=== PATIENT | female | born 1995 | race Caucasian/White ===

== ENCOUNTER → 2018-03-08 | Emergency (ER) | payer BC ==
[~2018-03-08] MED LIST: OSELTAMIVIR PHOSPHATE 75 MG CAPSULE ONE; OSELTAMIVIR PHOSPHATE 75 MG CAPSULE PO ONE; SODIUM CHLORIDE 1,000 ML IV STA
[2018-03-08 22:54] VITALS: BMI 65.4
--- NOTE | 2018-03-08 23:02 | PDOC ---
History of Present Illness - General History Source: Patient Exam Limitations: No Limitations - History of Present Illness Initial Comments: 03/08/18 23:24 The patient is a 22 year old female, with a significant past medical history of pseudotumor cerebri, who presents to the emergency department with, 3 days of cough, shortness of breath, and diarrhea. She notes associated diffuse body aches and describes her diarrhea yesterday and bloody. The patient reports she has not been able to get out of bed much for the past 3 days secondary to her lightheadedness and nausea when she attempts to do so. Patient endorses that her mother was diagnosed with Influenza A 3 days ago. She notes taking Tamiflu ( x1 dose), Tylenol, Imodium, and Robitussin, without relief; prompting her arrival to the ED. She denies recent nausea, vomit, or constipation. She denies recent dysuria, frequency, urgency or hematuria. Allergies: Diphenhydramine, Sulfa, Azithromycin, and Penicillins Social history: Smoker. Occasional marijuana usage. Denies EtOH use. Primary Care Physician: Dr. Albert <Eduard Aldrich - Last Filed: 03/08/18 23:53> <Danna Schmid - Last Filed: 03/09/18 06:14> - General Chief Complaint: Respiratory Stated Complaint: FLU Time Seen by Provider: 03/08/18 22:17 Past History <Eduard Aldrich - Last Filed: 03/08/18 23:53> - Past Medical History Cardiac Disorders: Yes (VSD) COPD: No - Immunization History Td Vaccination: Yes Immunization Up to Date: Yes - Suicide/Smoking/Psychosocial Hx Smoking Status: No Smoking History: Never smoked Have you smoked in the past 12 months: Yes Number of Cigarettes Smoked Daily: 6 'Breaking Loose' booklet given: 01/11/14 Hx Alcohol Use: No Drug/Substance Use Hx: No Substance Use Type: None Hx Substance Use Treatment: No <Danna Schmid - Last Filed: 03/09/18 06:14> - Past Medical History Allergies/Adverse Reactions: Allergies Allergy/AdvReac Type Severity Reaction Status Date / Time diphenhydramine Allergy Unknown Verified 03/08/18 22:54 [Diphenhydramine] Penicillins Allergy Unknown Verified 03/08/18 22:54 Sulfa (Sulfonamide Allergy Unknown Verified 03/08/18 22:54 Antibiotics) [Sulfa(Sulfonamide Antibiotics)] azithromycin [From Zithromax] Allergy Verified 03/08/18 22:54 Home Medications: Ambulatory Orders acetaZOLAMIDE [Diamox -] 250 mg PO BID 03/08/18 Review of Systems - Review of Systems Able to Perform ROS?: Yes Comments:: 03/08/18 23:24 CONSTITUTIONAL: Present: Fever, chills, diffuse body aches. EYES: Absent: visual changes ENT: Absent: ear pain, no sore throat CARDIOVASCULAR: Absent: chest pain, no palpitations RESPIRATORY: Present: cough, SOB GI: Present: Diarrhea. Absent: abdominal pain, no constipation GENITOURINARY: Absent: dysuria, no frequency, no hematuria MUSKULOSKELETAL: Absent: back pain, no arthralgia, no myalgia SKIN: Absent: rash NEURO: Absent: headache All Other Systems: Reviewed and Negative <Eduard Aldrich - Last Filed: 03/08/18 23:53> *Physical Exam - Vital Signs Last Vital Signs Temp Pulse Resp BP Pulse Ox 98.9 F 131 H 30 H 107/82 91 L 03/08/18 21:58 03/08/18 21:58 03/08/18 21:58 03/08/18 21:58 03/08/18 21:58 - Physical Exam Comments: 03/08/18 23:24 +GENERAL: Uncomfortably appearing. Morbidly obese. The patient is awake, alert, and fully oriented. HEAD: Normal with no signs of trauma. EYES: Pupils equal, round and reactive to light, extraocular movements intact, sclera anicteric, conjunctiva clear with no pallor. +ENT: Dry mucous membranes.Ears normal, nares patent, oropharynx clear without exudates. NECK: Normal range of motion, supple without lymphadenopathy, JVD, or masses. +LUNGS: Hypoxic to 76% on room air, 91% on 7L of O2. Bilateral crackles approximately a half way up. +HEART: Tachycardia. Regular rhythm, normal S1 and S2 without murmur or rub. ABDOMEN: Soft/nontender/nondistended. BS wnl. No guarding or rebound. No palpable masses. No hepatosplenomegaly. EXTREMITIES: Normal range of motion, no edema. No clubbing or cyanosis. No cords, erythema, or tenderness. NEUROLOGICAL: Cranial nerves II through XII grossly intact. Normal speech, normal gait. PSYCH: Normal mood, normal affect. SKIN: Warm, Dry, normal turgor, no rashes or lesions noted. <Eduard Aldrich - Last Filed: 03/08/18 23:53> - Vital Signs Last Vital Signs Temp Pulse Resp BP Pulse Ox 98.9 F 131 H 30 H 107/82 91 L 03/08/18 21:58 03/08/18 21:58 03/08/18 21:58 03/08/18 21:58 03/08/18 21:58 <Danna Schmid - Last Filed: 03/09/18 06:14> Moderate Sedation - Procedure Monitoring Vital Signs: Procedure Monitoring Vital Signs Temperature 98.9 F 03/08/18 21:58 Pulse Rate 131 H 03/08/18 21:58 Respiratory Rate 30 H 03/08/18 21:58 Blood Pressure 107/82 03/08/18 21:58 O2 Sat by Pulse Oximetry (%) 91 L 03/08/18 21:58 <Eduard Aldrich - Last Filed: 03/08/18 23:53> - Procedure Monitoring Vital Signs: Procedure Monitoring Vital Signs Temperature 98.9 F 03/08/18 21:58 Pulse Rate 131 H 03/08/18 21:58 Respiratory Rate 30 H 03/08/18 21:58 Blood Pressure 107/82 03/08/18 21:58 O2 Sat by Pulse Oximetry (%) 91 L 03/08/18 21:58 <Danna Schmid - Last Filed: 03/09/18 06:14> ED Treatment Course - LABORATORY CBC & Chemistry Diagram: 03/09/18 00:10 03/09/18 00:10 <Danna Schmid - Last Filed: 03/09/18 06:14> Progress Note - Progress Note Progress Note: Documentation has been prepared under my direction and personally reviewed by me in its entirety. I attest that this documented accurately reflects all work, treatment, procedures and medical decision making performed by me. <Danna Schmid - Last Filed: 03/09/18 06:14> Medical Decision Making - Medical Decision Making As noted above, this 22-year-old woman presents with a three-day history of febrile illness(MAXIMUM TEMPERATURE 102) with myalgias/diarrhea /cough and progressive shortness of breath. Patient's mother has been diagnosed with influenza A 2 days ago. Vital signs on presentation notable for room air pulse oximetry of 76% rising to 91% on nasal cannula 7 L/minute. Exam notable for inspiratory crackles bilaterally. IV hydration normal saline begun. (2 L given over first 3 hours ) Rapid influenza positive for influenza A. Patient given 75 mg Tamiflu (patient had given herself a dose of her mother's Tamiflu at 9 AM today) CBC notable for white blood cell count of 19,000 with marked left shift Lactic acid normal at 1.3 Serum negative INR slightly elevated at 1.3 BUN elevated at 19 and creatinine also mildly elevated at 1.3 Patient did not tolerate nasal cannula because of severe nasal congestion and she repeatedly removed the cannula, promptly desaturating. Oxygen supplementation changed to 100% nonrebreather which patient tolerated well and pulse oximetry now at 100% 03/09/18 02:29 PA CXR reveals bilateral diffuse infiltrates Because there is no available ICU bed at [facility] and the patient is at risk for rapid deterioration of her respiratory status, transfer to [facility] will be arranged. 03/09/18 03:[address] Tolliver, intensive care attending at [facility]. Patient accepted for transfer. Patient will be transferred to ED where further evaluation will be performed. 03/09/18 04:51 Patient transported to [facility] by ground Critical care team, awake and alert in stable condition 03/09/18 06:13 <Danna Schmid - Last Filed: 03/09/18 06:14> *DC/Admit/Observation/Transfer - Attestations Scribe Attestion: 03/08/18 23:25 Documentation prepared by Eduard Aldrich, acting as resident medical officer for Danna Schmid MD. <Eduard Aldrich - Last Filed: 03/08/18 23:53> - Transfer to Acute Care Facility Receiving Facility: [facility]. Accepting Physician:: Dr Tolliver <Danna Schmid - Last Filed: 03/09/18 06:14> Diagnosis at time of Disposition: Influenza A Bilateral pneumonia Qualifiers: Pneumonia type: due to influenza A virus Lung location: unspecified part of lung Qualified Code(s): J10.00 - Influenza due to other identified influenza virus with unspecified type of pneumonia - Discharge Dispostion Disposition: TRANSFER ACUTE CARE/OTHER HOSP Condition at time of disposition: Guarded - Referrals Referrals: John Albert MD [Primary Care Provider] - - Patient Instructions - Post Discharge Activity
[2018-03-09 01:08] LABS: BASO % 0.3 % (0-2.0); HEMOGLOBIN 15.2 GM/dL (10.7-15.3); LYMPH % 6.8 % (8-40); MCH 28.3 pg (25.7-33.7); MCHC 33.8 g/dl (32.0-36.0); MEAN CELL VOLUME 83.6 fl (80-96); MEAN PLT VOLUME 9.7 fl (7.5-11.1); MONO % 3.5 % (3.8-10.2); NEUT % 89.4 % (42.8-82.8); PLATELET COUNT 219 K/MM3 (134-434); RBC 5.38 M/mm3 (3.60-5.2); RDW 13.8 % (11.6-15.6); WHITE BLOOD COUNT 19.4 K/mm3 (4.0-10.0)
[2018-03-09 01:33] LABS: INR 1.3 (0.83-1.09); PROTHROMBIN TIME (PATIENT) 15.4 SEC (9.7-13.0)
[2018-03-09 01:47] LABS: ALBUMIN 2.9 g/dl (3.4-5.0); ALK PHOS 64 U/L (45-117); ANION GAP 9 MMOL/L (8-16); BLOOD UREA NITROGEN 19 mg/dL (7-18); CALCIUM 7.6 mg/dL (8.5-10.1); CHLORIDE 99 mmol/L (98-107); CO2 26 mmol/L (21-32); CREATININE 1.3 mg/dL (0.55-1.3); GLUCOSE,RANDOM 104 mg/dL (74-106); POTASSIUM 3.5 mmol/L (3.5-5.1); SGOT/AST 50 U/L (15-37); SGPT/ALT 24 U/L (13-61); SODIUM 133 mmol/L (136-145); TOT PROT 6.7 g/dl (6.4-8.2)
[2018-03-09 03:49] VITALS: BP 102/63; PULSE 108; TEMP 98
== END | disposition short-term general hospital (02) ==
LOC: FER 21:56
PROC: 3E03329 Introduction of Other Anti-infective into Peripheral Vein, Percutaneous Approach (ICD-10-PCS; principal; 2018-03-08)
PROC: 3E0337Z Introduction of Electrolytic and Water Balance Substance into Peripheral Vein, Percutaneous Approach (ICD-10-PCS; 2018-03-08)
DX: J09.X2 Influenza due to identified novel influenza A virus with other respiratory manifestations (principal); G93.2 Benign intracranial hypertension
CPT/HCPCS: 36415; 71046-TC-FY; 80053; 83605; 84703; 85025; 85610; 87804; 99284-25; J7030

== ENCOUNTER 2018-10-05 15:50 | Emergency (ER) | payer BC ==
[2018-10-05 16:10] VITALS: BP 141/74; PULSE 83; TEMP 98.1; BMI 60.5
[2018-10-05 16:59] LABS: BASO % 1.7 % (0-2.0); EOS % 2.3 % (0-4.5); HEMATOCRIT 45.3 % (32.4-45.2); HEMOGLOBIN 15.1 GM/dl (10.7-15.3); LYMPH % 19.5 % (8-40); MCH 27.5 pg (25.7-33.7); MCHC 33.4 g/dl (32.0-36.0); MEAN CELL VOLUME 82.2 fl (80-96); MEAN PLT VOLUME 8.7 fl (7.5-11.1); NEUT % 71.5 % (42.8-82.8); PLATELET COUNT 419 K/MM3 (134-434); RBC 5.51 M/mm3 (3.60-5.2); RDW 13.8 % (11.6-15.6); WHITE BLOOD COUNT 15.5 K/mm3 (4.0-10.8)
[2018-10-05 17:09] LABS: ALBUMIN 4.1 g/dl (3.4-5.0); BILIRUBIN,TOTAL 0.7 mg/dl (0.2-1); CALCIUM 8.9 mg/dl (8.5-10); POTASSIUM 4.1 mmol/L (3.5-5.1); TOT PROT 7.5 g/dl (6.4-8.2)
--- NOTE | 2018-10-05 17:17 | PDOC ---
Documentation entered by Sergey Hope SCRIBE, acting as scribe for Yaima Hebert MD. Yaima Hebert MD: This documentation has been prepared by the Jayy banegas Elijah, SCRIBE, under my direction and personally reviewed by me in its entirety. I confirm that the documentation accurately reflects all work, treatment, procedures, and medical decision making performed by me. History of Present Illness - General Chief Complaint: Respiratory Stated Complaint: COUGH FOR 2.5 WEEKS History Source: Patient Exam Limitations: No Limitations - History of Present Illness Initial Comments: 10/05/18 16:29 Patient is a 23 year old female with a significant past medical history of pseudotumor cerebri who presents to the ED with a productive cough for the last x2.5 weeks. Patient reports that the cough produces either clear or light brown sputum, and is associated with trouble sleeping, SOB and chest pain. Patient was seen at Urgent Care today and was told to come into the ED for a CT ( Patient has received CT's in the past with no prior reaction to the IV contrast) . Of note patient was admitted for pneumonia x7 months prior. Denies Fever. Allergies: Azithromycin, Diphenhydramine, Penicillins, Sulfa. Social History: Tobacco Use (x6-7 cigarettes a day), Marijuana Use. 10/05/18 16:37 Past History - Past Medical History Allergies/Adverse Reactions: Allergies Allergy/AdvReac Type Severity Reaction Status Date / Time azithromycin [From Zithromax] Allergy Severe Difficulty Verified 10/05/18 15:53 Breathing diphenhydramine Allergy Intermediate Swelling Verified 10/05/18 15:53 [Diphenhydramine] Penicillins Allergy Unknown Verified 10/05/18 15:54 Sulfa (Sulfonamide Allergy Unknown Verified 10/05/18 15:54 Antibiotics) [Sulfa(Sulfonamide Antibiotics)] Home Medications: Ambulatory Orders acetaZOLAMIDE [Diamox -] 100 mg PO BID 03/08/18 Albuterol 0.083% Nebulizer Hailee [Ventolin 0.083% Nebulizer Soln -] 1 neb NEB Q6H #30 vial 10/05/18 Benzonatate [Tessalon Pearls -] 100 mg PO TID PRN #21 capsule 10/05/18 Guaifenesin [Mucinex -] 600 mg PO BID #14 tablet.er 10/05/18 Methylprednisolone [Medrol Dose Av] 4 mg PO ASDIR #21 tablet 10/05/18 Nebulizer and Compressor [Easy Air Compressor Nebulizer] 1 each MC TID PRN #1 each 10/05/18 Cardiac Disorders: Yes (VSD) COPD: No - Immunization History Td Vaccination: Yes Immunization Up to Date: Yes - Suicide/Smoking/Psychosocial Hx Smoking Status: No Smoking History: Never smoked Have you smoked in the past 12 months: Yes Number of Cigarettes Smoked Daily: 6 'Breaking Loose' booklet given: 01/11/14 Hx Alcohol Use: No Drug/Substance Use Hx: No Substance Use Type: None Hx Substance Use Treatment: No Review of Systems - Review of Systems Comments:: 10/05/18 16:36 GENERAL/CONSTITUTIONAL: No fever or chills. No weakness. HEAD, EYES, EARS, NOSE AND THROAT: No change in vision. No ear pain or discharge. No sore throat. CARDIOVASCULAR: +chest pain +SOB RESPIRATORY: + Productive cough No wheezing, or hemoptysis. GASTROINTESTINAL: No nausea, vomiting, diarrhea or constipation. GENITOURINARY: No dysuria, frequency, or change in urination. MUSCULOSKELETAL: No joint or muscle swelling or pain. No neck or back pain. SKIN: No rash NEUROLOGIC: No headache, vertigo, loss of consciousness, or change in strength/ sensation. ENDOCRINE: No increased thirst. No abnormal weight change. HEMATOLOGIC/LYMPHATIC: No anemia, easy bleeding, or history of blood clots. ALLERGIC/IMMUNOLOGIC: No hives or skin allergy. *Physical Exam - Vital Signs Last Vital Signs Temp Pulse Resp BP Pulse Ox 98.1 F 83 20 141/74 100 10/05/18 15:52 10/05/18 15:52 10/05/18 15:52 10/05/18 15:52 10/05/18 15:52 - Physical Exam Comments: 10/05/18 16:38 GENERAL: The patient is in no acute distress. HEAD: Normal with no signs of trauma. EYES: PERRLA, EOMI, sclera anicteric, conjunctiva clear. ENT: Ears normal, nares patent, oropharynx clear without exudates. Moist mucous membranes. NECK: Normal range of motion, supple without lymphadenopathy, JVD, or masses. LUNGS: +Rhonchi in the RLL. No wheezing. HEART:Regular rate and rhythm, normal S1 and S2 without murmur, rub or gallop. ABDOMEN: Soft, nontender, normoactive bowel sounds. No guarding, no rebound. No masses palpable. EXTREMITIES: Normal range of motion, no edema. No clubbing or cyanosis. No erythema, or tenderness. NEUROLOGICAL: Cranial nerves II through XII grossly intact. Normal speech. No focal neurological deficits. MUSCULOSKELETAL: Back non-tender to palpation, no CVA tenderness SKIN: Warm, Dry, normal turgor, no rashes or lesions noted. ED Treatment Course - LABORATORY CBC & Chemistry Diagram: 10/05/18 16:50 10/05/18 16:50 - ADDITIONAL ORDERS Additional order review: 10/05/18 16:50 RBC 5.51 H MCV 82.2 MCHC 33.4 RDW 13.8 D MPV 8.7 Neutrophils % 71.5 Lymphocytes % 19.5 Monocytes % 5.0 Eosinophils % 2.3 Basophils % 1.7 - RADIOLOGY Radiology Studies Ordered: Category Date Time Status CHEST CTA [CT] Stat CT Scan 10/05/18 16:27 Ordered Medical Decision Making - Medical Decision Making 10/05/18 17:03 Ms Amaya is a 23 yo F who presents to the ER with a complaint of shortness of breath Midsternal chest pain, worse with deep breathing No fevers or chills 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 did have a recent DVT (in the setting of being immobilized in the ICU at the beginning of this year, pt is currently not taking any anticoagulation) DD: Bronchitis, pneumonia, PE (unlikely) Will do: Labs CTA Re Assess 10/05/18 17:15 Laboratory Tests 10/05/18 10/05/18 16:50 16:50 WBC 15.5 H Hgb 15.1 Hct 45.3 H Plt Count 419 BUN 16.0 Creatinine 1.0 10/05/18 18:08 Laboratory Tests 10/05/18 16:50 Serum , Qual Negative CTA negative for PE, infiltrate, pneumonia Cough likely related to pt tobacco use and possibly a viral respiratory infection I will not provide abx at this time Will give symptomatic treatment for now Clinical Impression: bronchitis, initial presentation *DC/Admit/Observation/Transfer Diagnosis at time of Disposition: Bronchitis - Discharge Dispostion Disposition: HOME Condition at time of disposition: Stable Decision to Admit order: No - Prescriptions Prescriptions: Albuterol 0.083% Nebulizer Hailee [Ventolin 0.083% Nebulizer Soln -] 1 neb NEB Q6H #30 vial Benzonatate [Tessalon Pearls -] 100 mg PO TID PRN #21 capsule PRN Reason: Cough Guaifenesin [Mucinex -] 600 mg PO BID #14 tablet.er Methylprednisolone [Medrol Dose Av] 4 mg PO ASDIR #21 tablet Nebulizer and Compressor [Easy Air Compressor Nebulizer] 1 each MC TID PRN #1 each PRN Reason: Wheezing - Referrals - Patient Instructions Printed Discharge Instructions: DI for Acute Bronchitis Additional Instructions: Monique Thank you for coming in to the ER today Please be sure to follow up with your primary care physician Return to the ER for any other concerns or complaints - Post Discharge Activity Forms/Work/School Notes: Back to Work
== END 2018-10-05 19:30 | disposition home or self-care (01) ==
LOC: FER 15:50
DX: J40 Bronchitis, not specified as acute or chronic (principal)
CPT/HCPCS: 36415; 71275-TC; 80053; 81025; 84703; 85025; 99282-25

== ENCOUNTER 2022-01-11 16:40 | Emergency (ER) | payer BC, OTHER ==
[2022-01-11 16:59] VITALS: PULSE 78; RESP 18; TEMP 97.8; BMI 64.2
[2022-01-11 17:12] VITALS: BP 136/98
[2022-01-11] MEDS ORDERED: DIPHTH,PERTUSS(ACELL),TET 0.5 ML DISP.SYRIN IM ONE ×2 (17:59→18:03)
== END 2022-01-11 18:10 | disposition home or self-care (01) ==
LOC: FER 16:40
PROC: 0H94XZZ Drainage of Neck Skin, External Approach (ICD-10-PCS; principal; 2022-01-11)
PROC: 3E0234Z Introduction of Serum, Toxoid and Vaccine into Muscle, Percutaneous Approach (ICD-10-PCS; 2022-01-11)
DX: L02.11 Cutaneous abscess of neck (principal)
CPT/HCPCS: 10060; 90471; 90715; 99284-25